=== PATIENT | female | born 1940 | race Caucasian/White ===

== ENCOUNTER 2016-06-29 12:34 | Observation (INO) | payer OTHER, MEDICARE ==
--- NOTE | 2016-06-29 13:30 | EDPHY ---
H & P Time Seen by Provider: 06/29/16 12:51 HPI/ROS: Chief complaint. Trouble speaking HPI. 75-year-old female had a 30 minutes episode of trouble speaking at noon today approximately 1 and 0.5 hours ago. It lasted 30 minutes and then resolved. She has no symptoms now. She tells me she knew what she wanted to say but could not get out. She had no other symptoms with it no leg weakness or arm weakness or paresthesias. No visual change. She had a slight headache which is now gone. No similar symptoms previously. Recent switch of blood pressure medication from amlodipine to Cozaar. Otherwise not sick. No chest discomfort shortness of breath or abdominal pain ROS Constitutional. no fever/chills, no weakness Eyes. no problems with vision ENT. no sore throat, no nasal drainage Cardiovascular. no chest pain Respiratory. no shortness of breath, no cough Abdominal. no abdominal pain, no nausea/vomiting, no diarrhea . no problems urinating MS. no calf pain/swelling, no neck/back pain, no joint pain Skin. no rash Lymph. no swollen glands Neuro. Difficulty speaking and slight headache Past Medical/Surgical History: Past medical history is significant for hypertension and concussion about 1 month ago Social History: , nonsmoker, no alcohol Smoking Status: Never smoked Physical Exam: General Appearance: Alert well-developed female no distress vital signs significant for blood pressure 217/109 Eyes: Pupils equal and round no pallor or injection. ENT, Mouth: Mucous membranes are moist. Respiratory: There are no retractions, lungs are clear to auscultation. Cardiovascular: Regular rate and rhythm. Gastrointestinal: Abdomen is soft and nontender, no masses, bowel sounds normal. Neurological: Awake and alert, sensory and motor exams grossly normal. Speech is normal. Cranial nerves are normal. There is no pronator drift. Finger-to- nose and [id number]-mr-[id number] are intact bilaterally Skin: Warm and dry, no rashes. Musculoskeletal: Neck is supple nontender. Extremities symmetrical, full range of motion. Psychiatric: Patient is oriented X 3, there is no agitation. Constitutional: Initial Vital Signs Temperature (C) 36.7 C 06/29/16 12:35 Heart Rate 81 06/29/16 12:35 Respiratory Rate 16 06/29/16 12:35 Blood Pressure 217/109 H 06/29/16 12:35 O2 Sat (%) 97 06/29/16 12:35 O2 Delivery Mode Room Air Allergies/Adverse Reactions: lidocaine Allergy (Uncoded 05/29/16 10:31) Home Medications: Medication Instructions Recorded Valerie 06/29/16 Medical Decision Making - Diagnostics EKG Interpretation: EKG interpreted by me shows normal sinus rhythm with normal interval axis QRS ST -T. There is no arrhythmia. The rate is 63 Imaging: Noncontrast head CT reviewed by me and discussed with Dr. Horton is consistent with mild atrophy but no intracranial bleeding Procedures: IV normal saline, monitor ED Course/Re-evaluation: Re-evaluation at 3:15 p.m.. Patient is stable without any neurologic findings. We discussed treatment plan including recommendation for admission for further evaluation. She expresses understanding and agrees I consulted and discussed the case with Dr. Sánchez Daily, hospitalist, who agrees to the admission Differential Diagnosis: I think that this represents TIA with speech difficulty. She has a normal neurologic exam now. I considered intracranial bleeding, a arrhythmia, infection. - Data Points Laboratory Results: Laboratory Results 06/29/16 12:48 06/29/16 12:48 06/29/16 12:48 WBC 5.62 10^3/uL (3.80-9.50) RBC 4.68 10^6/uL (4.18-5.33) Hgb 13.5 g/dL (12.6-16.3) Hct 39.6 % (38.0-47.0) MCV 84.6 fL (81.5-99.8) MCH 28.8 pg (27.9-34.1) MCHC 34.1 g/dL (32.4-36.7) RDW 12.7 % (11.5-15.2) Plt Count 250 10^3/uL (150-400) MPV 11.4 fL (8.7-11.7) Neut % (Auto) 46.5 % (39.3-74.2) Lymph % (Auto) 40.4 % (15.0-45.0) [place] % (Auto) 11.4 % (4.5-13.0) Eos % (Auto) 0.4 L % (0.6-7.6) Baso % (Auto) 1.1 % (0.3-1.7) Nucleat RBC Rel Count 0.0 % (0.0-0.2) Absolute Neuts (auto) 2.62 10^3/uL (1.70-6.50) Absolute Lymphs (auto) 2.27 10^3/uL (1.00-3.00) Absolute Monos (auto) 0.64 10^3/uL (0.30-0.80) Absolute Eos (auto) 0.02 L 10^3/uL (0.03-0.40) Absolute Basos (auto) 0.06 10^3/uL (0.02-0.10) Absolute Nucleated RBC 0.00 10^3/uL (0-0.01) Immature Gran % 0.2 % (0.0-1.1) Immature Gran # 0.01 10^3/uL (0.00-0.10) PT 13.9 SEC (12.0-15.0) INR 1.08 (0.83-1.16) Sodium 143 mEq/L (134-144) Potassium 4.6 mEq/L (3.5-5.2) Chloride 110 mEq/L (97-110) Carbon Dioxide 23 mEq/l (22-31) Anion Gap 10 mEq/L (8-16) BUN 17 mg/dL (7-23) Creatinine 0.7 mg/dL (0.6-1.0) Estimated GFR > 60 Glucose 108 H mg/dL (70-100) Calcium 9.5 mg/dL (8.5-10.4) Medications Given: Discontinued Medications Sodium Chloride (Ns) 1,000 mls @ 0 mls/hr IV ONCE ONE PRN Reason: Wide Open Stop: 06/29/16 13:43 Last Admin: 06/29/16 14:16 Dose: 1,000 mls Departure - Departure Disposition: [facility] Clinical Impression: Transient cerebral ischemia Qualifiers: Transient cerebral ischemia type: unspecified Qualifier Code: (G45.9) Transient cerebral ischemic attack, unspecified Condition: Fair
[2016-06-29] MEDS ORDERED: NS 1,000 ML IV ONE (13:42)
[2016-06-29 13:52] LABS: % IMMATURE GRANULYOCYTES 0.2 % (0.0-1.1); ABSOLUTE IMMATURE GRANULOCYTES 0.01 10^3/uL (0.00-0.10); ADD DIFF? NO; ADD MORPH? NO; ADD SCAN? NO; ATYPICAL LYMPHOCYTE FLAG 20 (0-99); FRAGMENT RBC FLAG 0 (0-99); HEMATOCRIT 39.6 % (38.0-47.0); HEMOGLOBIN 13.5 g/dL (12.6-16.3); LEFT SHIFT FLG 0 (0-99); LIPEMIA HEMOLYSIS FLAG 90 (0-99); MEAN CELL HEMOGLOBIN 28.8 pg (27.9-34.1); MEAN CELL HEMOGLOBIN CONCENTR. 34.1 g/dL (32.4-36.7); MEAN CELL VOLUME 84.6 fL (81.5-99.8); MEAN PLATELET VOLUME 11.4 fL (8.7-11.7); PLATELET CLUMPS FLAG 0 (0-99); PLATELET COUNT 250 10^3/uL (150-400); RED BLOOD CELL COUNT 4.68 10^6/uL (4.18-5.33); RED CELL DISTRIBUTION WIDTH 12.7 % (11.5-15.2)
[2016-06-29 14:00] LABS: ANION GAP 10 mEq/L (8-16); CALCIUM 9.5 mg/dL (8.5-10.4); CARBON DIOXIDE 23 mEq/l (22-31); CHLORIDE 110 mEq/L (97-110); CREATININE 0.7 mg/dL (0.6-1.0); GLOMERULAR FILTRATION RATE > 60; GLUCOSE 108 mg/dL (70-100); POTASSIUM 4.6 mEq/L (3.5-5.2); SODIUM 143 mEq/L (134-144)
[2016-06-29 14:03] LABS: INR 1.08 (0.83-1.16); PROTIME(PATIENT) 13.9 SEC (12.0-15.0)
--- NOTE | 2016-06-29 14:41 | CPEKG ---
Heart Rate: 63 RR Interval: 952 P-R Interval: 168 QRSD Interval: 78 QT Interval: 416 QTC Interval: 426 P [place]: 32 QRS [place]: 41 T Wave [place]: 50 EKG Severity - NORMAL ECG - EKG Impression: SINUS RHYTHM Electronically Signed By: Siva Barrera 29-Jun-2016 17:24:41
--- NOTE | 2016-06-29 15:16 | CT ---
CT Brain (Without Contrast) History: Episode of speech difficulty in a 75-year-old female. The episode has resolved. The patient experienced closed head injury one month ago.. Technique: Axial computed tomographic images of the brain are obtained from the base to the vertex w ithout contrast. Images are obtained at 5 mm thickness and reformatted at 1.5 mm. Sagittal and valladares l reformations are performed and the study is reviewed at multiple window/level settings. Dose reduct ion techniques were utilized. Comparison to the prior unenhanced CT of the head May 29, 2016. Findings: Ventricles, cisterns, and sulci are widened consistent with atrophy. There is no hydroceph alus, midline shift/herniation, or epidural/subdural hematoma. No intraparenchymal hemorrhage or mass effect is identified. Hypodensities are noted in the periventricular and subcortical white matter bi laterally. No acute cortical ischemia is identified. Cerebrovascular atherosclerosis is identified. B one windows demonstrate no displaced fractures. Paranasal sinuses and mastoid air cells are clear. There has been no significant change from the prior study. Impression: Elderly brain with atrophy and probable white matter small vessel disease. Nothing acute is identified. A preliminary report was called to Dr. Siva Barrera at 1515 hours in the Emergency Department.
[2016-06-29] MEDS ORDERED: ONDANSETRON DISINTEGRATING 4 MG TAB PO PRN (16:00)
[2016-06-29] MEDS ORDERED: ACETAMINOPHEN 325 MG TAB PO PRN (16:00)
[2016-06-29] MEDS ORDERED: ONDANSETRON 4 MG/2 ML VIAL IVP PRN (16:00)
[2016-06-29] MEDS: ASPIRIN 325 MG TAB PO SCH (16:08)
--- NOTE | 2016-06-29 16:23 | GHP ---
[f rep st] HISTORY AND PHYSICAL DATE OF ADMISSION: 06/29/2016 CHIEF COMPLAINT: Word-finding difficulties. HISTORY OF PRESENT ILLNESS: A 75-year-old female with a history of hypertension, hypothyroidism who woke in her normal state of health this morning, and while having discussions with her partner, ira oped sudden onset difficulty of speaking the words and finding words that she wanted to say. Patient quickly read up on the Internet; realized that it was potentially stroke symptoms; took an aspirin, full dose, at home; and presented to the emergency department. She describes in transit that her wor d-finding difficulty nearly resolved and so upon arrival to the emergency department, she had re-esta blished fluency. Patient denies any numbness or tingling, any weakness or other neurologic symptoms. Denies any dizziness, palpitations, headache, chest pain, shortness of breath, pleuritic chest pain , nausea, vomiting, abdominal discomfort, melena, hematochezia, dysuria, hematuria, rashes, or recent sick contacts. Denies any subjective fevers or chills. PAST MEDICAL HISTORY: 1. Hypertension. 2. Hypothyroidism. SOCIAL HISTORY: Negative for tobacco, 2 alcoholic beverages a week. No illicit drugs or marijuana. FAMILY HISTORY: Father in his 50s from a brain tumor. Mother has a history of cardiac disease, as well as stroke. ADVANCED DIRECTIVES: Patient is full cor, full tube. REVIEW OF SYSTEMS: A 10-point review of systems is negative with the exception of that reported in t he HPI. PHYSICAL EXAMINATION: VITAL SIGNS: Blood pressure is 217/109, heart rate 81, respiratory rate 16, 9 7% on room air, 36.7. GENERAL: This is a healthy-appearing middle-aged female in no acute distress. HEENT: Notable for moist mucous membranes. Eyes, negative for any icterus. CARDIAC: Patient is regular rate and rhythm. Moderate systolic murmur heard best at the left upper sternal border. PULM ONARY: Good respiratory effort. Clear to auscultation bilaterally. GASTROINTESTINAL: Positive bow el sounds. Soft, nontender in all 4 quadrants. MUSCULOSKELETAL: Negative for any lower extremity e júnior. SKIN: Negative for any rashes. NEUROLOGIC: Patient's strength is 5/5 in the bilateral upper and lower extremities. Sensation is intact throughout. Cranial nerves 2-12 are intact. The patien t is alert and oriented x3. Speech fluency is normal. DATA REVIEWED: CT noncontrast of the head, which I personally reviewed and interpreted, shows no acu te infarcts or bleeds. Radiology comments on elderly brain with atrophy. EKG, which I personally reviewed and interpreted, shows sinus rhythm, normal axis, normal intervals, inverted P-wave V1, inverted T-wave V1, otherwise no acute ST-T changes. LABORATORY DATA: White count 5.6, hematocrit 39.6, platelets of 250. INR 1.08. Creatinine 0.7, glu cose 108. ASSESSMENT/PLAN: This is a 75-year-old female, presenting with word-finding difficulty. 1. Suspected transient ischemic attack. Patient's initial brain imaging is negative. Neurologic ex am has restored itself to normal. Risks factors include uncontrolled hypertension; potential hyperli pidemia, although not established by the outpatient provider; and a family history of TIA in her moth er. The patient will be admitted to neurologic monitoring on telemetry. I have ordered an MRI with and without contrast, complete transthoracic echocardiogram, and carotid Dopplers. The patient riley david treated herself with a full-dose aspirin, will continue this daily until the end of her diagnostic workup. Consulted Neurology who will see the patient tomorrow morning after diagnostic information is gathered and the patient is monitored. 2. Hypertensive urgency. Patient is presenting with systolic blood pressures in the 200s. Will rec heck these prior to aggressively treating. Goal blood pressure for her would be below 180 systolic, as it sounds she has had recent difficulty controlling her blood pressures on home medications and casas s been running with systolics in the 160s to 180s. Do not want to drop her any lower than that. 3. Hypothyroidism. Will continue her home medications and check a TSH. 4. Prophylaxis: With Lovenox. 5. Diet: Regular after cleared by Speech Therapy. 6. Disposition: I expect in less than 2 midnights if the patient's diagnostic workup remains benign . Can discharge after neurologic consultation. I have discussed the case with the emergency room ph ysician. Patient will be triaged to the medical-surgical floor for neurologic observation. /[id number]/MODL
--- NOTE | 2016-06-29 16:37 | US ---
Bilateral Duplex Carotid Sonography Clinical Indications: 75-year-old female who had a TIA with an episode of speech difficulty, which h as since resolved. Evaluate for a hemodynamically significant stenosis. Technique: The cervical portions of the carotid and vertebral arteries were imaged and interrogated by color and pulsed Doppler. Spectral analysis was performed. Cine clips are stored on PACS. Comparison Study: CT angiography of the neck dated February 20, 2009. Findings: Right Carotid Artery: The common carotid artery, bifurcation, and the origin of the internal and ext ernal carotid artery are well imaged. Doppler velocity estimates and color Doppler spectra are lexi l, with no sonographic evidence of a flow-limiting stenosis. The peak systolic velocity in the [employer] al carotid artery is 99 cm/sec, with a peak diastolic velocity of 22 cm/sec. The ICA/CCA systolic and diastolic ratios are normal. Left Carotid Artery: The common carotid artery, bifurcation, and origin of the internal and external carotid artery are well imaged. Doppler velocity estimates and color Doppler spectra are normal, wi th no sonographic evidence of a flow-limiting stenosis. There is some mild atherosclerotic calcific p laque involving the left carotid bulb and the proximal internal carotid artery. The peak systolic dawna ocity in the internal carotid artery is 91 cm/sec, with a peak diastolic velocity of 16 cm/sec. The I CA to CCA systolic and diastolic ratios are normal. Vertebral Arteries: Antegrade flow is shown by pulsed Doppler of each vertebral artery. The peak sys tolic velocity in the right vertebral artery is 92 cm/sec, and on the left side there is a peak systo lic velocity of 72 cm/sec. Impression: 1. Atherosclerotic calcific plaque involving the left carotid bulb and the proximal internal carotid artery, without hemodynamically significant stenosis identified on the right or left side. 2. Patent, antegrade vertebral arteries. Measurement of carotid stenosis is based on velocity parameters that correlate the residual internal carotid diameter with [place] Symptomatic Carotid Endarterectomy Trial (NASCET) based stenosis levels.
[2016-06-29] MEDS ORDERED: GADOBUTROL 10 ML VIAL IVP ONE (16:55)
--- NOTE | 2016-06-29 18:13 | MR ---
Unenhanced and Enhanced MR Imaging of the Brain Clinical History: 75-year-old female who had an episode of speech difficulty earlier today (which has since resolved), and is being evaluated for a transient ischemic attack. Rule out CVA. Technique: Sagittal and axial T1 FLAIR, axial T2 PROPELLER and T2 FLAIR, axial SWI, DWI, and ADC map, as well as contrast-enhanced axial T1-weighted FS PGR with sagittal and coronal reformatted images. The patient received 6 mL of IV Gadavist without complication. Comparison Studies: Unenhanced CT imaging of the brain, dated June 29, 2016 and May 29, 2016. Findings: Again, there is mild prominence of the ventricles and basilar cisterns with cortical sulcal widening, consistent with age-related cerebral cortical atrophy. There is periventricular hyperinten se FLAIR signal at and above the level of the ventricles, and also minimally involving portions of th e sebastián, most consistent with chronic microvascular ischemic gliosis. The DWI sequences do not reveal any restricted diffusion to suggest an acute or subacute infarction. The SWI sequences do not reveal any blooming artifact to suggest occult hemorrhagic products or amyloid angiopathy. There is no acute or subacute intra- or extraaxial abnormal fluid collection. Following gadolinium, there is no unusua l parenchymal or leptomeningeal enhancement. There are appropriate vertebrobasilar, carotid artery, a nd dural venous sinus flow-voids. The craniocervical junction, sella turcica, pineal gland, and the o rbits are normal. The paranasal sinuses and mastoids are unremarkable. The cerebellopontine angles an d the internal auditory canals appear normal. Impression: Senescent features with cerebral cortical atrophy and extensive chronic microvascular isc hemic gliosis, but no evidence of an acute or subacute infarction.
[2016-06-29] MEDS: hydrALAZINE 20 MG/ML VIAL IVP PRN (19:16)
[2016-06-30] MEDS: hydrALAZINE 20 MG/ML VIAL IVP PRN (03:03)
[2016-06-30 05:13] LABS: ALANINE AMINOTRANSFERASE 25 IU/L (9-52); ALBUMIN 3.3 g/dL (3.5-5.0); ALKALINE PHOSPHATASE 66 IU/L (38-126); ANION GAP 9 mEq/L (8-16); ASPARTATE AMINOTRANSFERASE 19 IU/L (14-46); BILIRUBIN,TOTAL 0.6 mg/dL (0.1-1.4); CALCIUM 9.3 mg/dL (8.5-10.4); CARBON DIOXIDE 23 mEq/l (22-31); CHLORIDE 112 mEq/L (97-110); CHOLESTEROL 166 mg/dL (140-220); CHOLESTEROL/HDL RATIO 3.02 RATIO (1.00-4.44); CREATININE 0.7 mg/dL (0.6-1.0); GLOMERULAR FILTRATION RATE > 60; GLUCOSE 98 mg/dL (70-100); HIGH DENSITY LIPOPROTEIN 55 mg/dL (40-85); LDL/HDL RATIO 1.87 RATIO (1.00-3.22); LOW DENSITY LIPOPROTEIN 103 mg/dL (80-100); NON-HIGH DENSITY LIPOPROTEIN 111 mg/dL (90-129); POTASSIUM 4.1 mEq/L (3.5-5.2); SODIUM 144 mEq/L (134-144); TOTAL PROTEIN 6.2 g/dL (6.3-8.2); TRIGLYCERIDE 44 mg/dL (35-135); VERY LOW DENSITY LIPOPROTEINS 8 mg/dL (8-25)
[2016-06-30] MEDS: ASPIRIN 325 MG TAB PO SCH (08:56)
[2016-06-30] MEDS ORDERED: ENOXAPARIN 40 MG/0.4 ML SYR SC SCH (09:00)
[2016-06-30] MEDS ORDERED: [UNRECOGNIZED DRUG - OTHER] PO SCH (09:00)
[2016-06-30] MEDS ORDERED: Herbals/Supplements -Info Only PO SCH (09:00)
[2016-06-30] MEDS ORDERED: LOSARTAN POTASSIUM 50 MG TAB PO SCH (09:00)
--- NOTE | 2016-06-30 09:34 | ECHO ---
[id number] + + [address] : : [place] [address] : : [phone] + Adult Echocardiographic Report + ---------+ :Name: DEISI TALAVERA Date: 06/30/2016 08:16 AM : : Hospital Admission Number: [id number] Shelly samiranolan: 345: :: 1940 Gender: Female Height: 63 i n : :Age: 75 yrs Race: WH Weight: 132 lb : :Reason For Study: TIA : : BSA: 1.6 met ers2 : + ---------+ MMode/2D Measurements & Calculations IVSd: 1.0 cm LVIDd: 4.3 cm FS: 31.1 % MV Diam: 3.1 cm LVPWd: 1.2 cm LVIDs: 2.9 cm EDV(Teich): 81.3 ml ESV(Teich): 33.2 ml EF(Teich): 59.2 % Ao root diam: LVOT diam: 1.9 cmLVLd ap4: 7.5 cm SV(MOD-sp4): 2.9 cm LVOT area: EDV(MOD-sp4): 42.0 ml LA dimension: 3.0 cm2 60.0 ml 4.0 cm LVLs ap4: 6.5 cm ESV(MOD-sp4): 18.0 ml EF(MOD-sp4): 70.0 % Normal Measurement Values: + + :LVIDd (3.5-5.7cm) IVSd (0.6-1.1cm) LVPWd (0.6-1.1cm) Aortic Root (2.0-3.7cm)Left Atrium (1.5-4.0cm): :LV Vol(d) (76-115ml) LV Vol(s) (29-48ml) Ejec Fraction (50-65%)PV Curt (0.6- 1.2m/s) TV Curt (0.4-1.0m/s) : :MV E Curt (0.8-1.0m/s)MV A Curt (0.3-1.0m/s)LVOT Curt (0.7-1.2m/s) Asc Ao Curt ( 0.9-1.8m/s) : + + Doppler Measurements & Calculations MV E max curt: MV area (1 diam): Ao mean PG: LV V1 mean P.4 cm/sec 7.4 cm2 6.3 mmHg 1.3 mmHg MV A max curt: MV Flow area Ao V2 mean: LV V1 mean: 81.9 cm/sec 119.2 cm/sec 51.3 cm/sec MV E/A: 0.99 (1diam): 7.4 cm2 Ao V2 VTI: 40.3 cm LV V1 VTI: 21.3 cm MANUEL(I,D): 1.6 cm2 MR max curt: SV(LVOT): 63.3 ml 594.5 cm/sec MR max P.4 mmHg Left Ventricle The left ventricle is normal in size. Borderline concentric LVH noted. Left ventricular systolic function is normal. There is Doppler evidence for diastolic dysfunction. LVEF= 65%. No regional wall motion abnormalities noted. Right Ventricle The right ventricle is normal in size and function. Atria The left atrium is mildly dilated. Right atrial size is normal. The interatrial septum is intact with no evidence for an atrial septal defect. Mitral Valve No MV prolapse. There is no mitral valve stenosis. There is moderate mitral regurgitation. Tricuspid Valve Normal tricuspid valve. Mild TR noted. Aortic Valve Mild aortic valve sclerosis. There is no aortic stenosis. There is no aortic insufficiency. Pulmonic Valve The pulmonic valve is normal in structure and function. There is no pulmonic valvular regurgitation. Great Vessels The aortic root is normal size. Pericardium/Pleural There is no pericardial effusion. Conclusion A complete two-dimensional transthoracic echocardiogram was performed (2D, M-mode, Doppler and color flow Doppler). There is no obvious source of embolus identified. If one is highly clinically suspected, then transesophageal echocardiography should be considered. 1)Normal LV size and systolic function with a LVEF of 65% and normal wall motions. 2)Borderline concentric LVH noted with mild diastolic dysfunction. 3)Mild left atrial enlargment. 4)Mild aortic valve sclerosis with no or AI noted. 5)Moderate MR with mild MAC (mitral annual calcification) but no MV prolapse. 6)Mild TR noted. Unable to estimate PA pressures. 7)No ASD or PFO noted. 8)No LV thrombus noted. Final Reading Physician: Parish Zavala electronically signed on 06/30/2016 09:32 AM Ordering Physician: Chary Alvarez Performed By: Addie Vasquez RDCS
[2016-06-30 11:23] VITALS: PULSE 77; RESP 23; TEMP 98.6; O2SAT 96
[2016-06-30 11:24] VITALS: BP 186/79
[2016-06-30] MEDS ORDERED: LOSARTAN POTASSIUM 50 MG TAB PO ONE (13:30)
--- NOTE | 2016-06-30 13:48 | PDCONSULT ---
Pipeline Technician Note: HOSPITAL NEUROLOGY CONSULT REQUESTING: Chary Alvarez MD REASON: possible TIA HPI: This is a 75-year-old right-handed woman with a history of hypertension and hypothyroidism who presented to our Emergency Department yesterday due to a transient disturbance and language function. Patient states that over the past week or so she has been having difficulty controlling her high blood pressure. She states her home measures had been measuring systolics in the 160-180s. Yesterday, she was driving in the car with her partner when she noticed sudden onset expressive language difficulty lasting 10-20 minutes. Her partner states that her words were coming out and a telegraphic type fashion with nonsensical constant type sounds. There is no indication of any facial drooping, extremity weakness, sensory loss, visual disturbance. The patient states her stat symptoms resolved by the time she presented to the emergency room. She was concern for stroke, which is why she came to our facility. She has been asymptomatic since admission. No prior history of stroke or TIA. ROS: As per the HPI, otherwise a complete 12 point ROS was performed and is negative ALLERGIES AND MEDS: As recorded in the EMR - reviewed and reconciled PFSH: As per the intake H&P by Dr. Alvarez from 06/29/16 EXAM: GEN: WDWN laying in NAD HEENT: NCAT, sclera anicteric, conjunctiva not injected, MMM, oropharynx clear, no scalp tenderness NECK: supple, nontender, no meningismus CV: RRR s1 s2 wo m/r/c/g. Carotid pulses 2+ wo bruit NEURO: MS: awake, alert, oriented to all spheres. Speech nondysarthric. No language disturbance. Follows commands. Attends to both sides. Recent/remote memory grossly intact. Mood euthymic. Good fund of knowledge. CN: pupils 3mm round and reactive. Fundi with sharp discs. VFF. Primary gaze centered. Full ocular motility. Facial sensation preserved. Face symmetric. Palatoglossal movements intact. Shoulder shrug and head turn strong. MOTOR: normal bulk/tone. No adventitial movements. Full power throughout. SENSORY: intact to all modalities throughout. No extinction. COORD: no ataxia FN/HS. Andra preserved. Romberg neg. REFLEX: plantars down. No clonus. DTRS trace. GAIT: rises unassisted. Narrow base. Intact stride length/heel strike/toe lift /arm swing. Turns with 2 steps. Able to tandem without difficulty. DATA: Labs reviewed in EMR LDL 103 A1c pending Carotid doppler - mild left carotid bulb plaque, no hemodynamically significant stenosis of the BICAs MRI brain wo - no acute ischemia, moderate periventricular and subcortical chronic microvascular ischemic changes, couple punctate areas of chronic microvascular ischemia in the sebastián. IMPRESSION AND RECOMMENDATIONS: // TRANSIENT LANGUAGE DYSFUNCTION - TIA VS HYPERTENSIVE EMERGENCY Patient with transient expressive aphasia concerning for TIA, though, given her continued HTN in hospital and hx of difficult to control pressures, the possibility of HTN emergency is certainly high on the differential. Regardless of etiology, treatment is similar. - cont ASA daily - aggressive BP control with goal normotension - of the utmost importance as HTN is the number one risk factor for stroke - statin for goal LDL < 70 - normoglycemia with A1c < 6.5 - stroke education provided, including activating EMS for any abrupt onset neurologic deficit - followup with PCP for further surveillance and optimization of vascular risk factors, namely BP - OK for d/c from neuro standpoint
--- NOTE | 2016-06-30 16:01 | GDS ---
[f rep st] DISCHARGE SUMMARY DISCHARGE DIAGNOSES: Include: 1. Transient ischemic attack. 2. Hypertensive emergency. 3. Hyperthyroidism. HISTORY OF PRESENT ILLNESS: A 75-year-old female with a history of hypertension, who presented with word-finding difficulties. For details of patient's initial presentation, please see the history and physical dated 06/29/2016. CONSULTATIVE SERVICES: Include Neurology. PROCEDURES: On 06/29/2016, patient had a noncontrast CT of the head that showed no acute findings. On 06/29/2016, patient had an MRI of the brain that showed no acute infarct. On 06/29/2016, patient had a carotid Doppler that showed no flow-limiting stenoses. On 06/29/2016, patient had a transthora cic echocardiogram that showed no ASD or patent foramen ovale, no LV thrombus, normal LV size and fun ction. HOSPITAL COURSE BY ISSUE: 1. Transient ischemic attack: Patient had word-finding difficulties which came on rapidly and resol efren slowly prior to her presentation to the emergency department. Imaging workup has been negative f or stroke. High suspicion with the patient's risk factor of hypertension, but likely this was a chamorro sient ischemic attack. Plan is to maximize her cardiovascular risk factors, as well as blood pressur e control. She will follow in the outpatient setting with her Cardiology and primary care team. Of n ote, the patient's LDL is not at goal less than 70. Will discuss the initiation of a statin at discha e. Hemoglobin A1c is pending on the day of discharge. Dr. Ortega will need to follow. 2. Hypertensive urgency: Patient had markedly elevated blood pressures with systolics in the 200s t ransiently. Will up-titrate her outpatient regimen of losartan to full dose 100 [address] with [address]. Cason. She will be seen in the clinic next week for the addition of what we anticipate as necessary second agent for appropriate control. MEDICATIONS AT THE TIME OF DISPOSITION: Please reference medication reconciliation printed on 2016. FOLLOWUP APPOINTMENTS: 1. Include with Dr. Cason in the next 5-7 days for a blood pressure check and medication titratio n. 2. With Dr. Ortega for long-term management of her medical comorbidities and followup on her hemoglo bin A1c. PENDING STUDIES AT THE TIME OF DICTATION: Include a hemoglobin A1c. I spent greater than 30 minutes in the planning and coordination of this discharge. /[id number]/MODL
[2016-07-01 05:18] LABS: HEMOGLOBIN A1C 5.5 % (4.0-6.0)
[2016-07-01] MEDS ORDERED: LOSARTAN POTASSIUM 50 MG TAB PO SCH (09:00)
== END 2016-06-30 16:50 | disposition home or self-care (01) ==
LOC: F3N 17:20
PROVIDERS: ADMIT Internal Medicine; ATTEND Hospitalist
DX: G45.9 Transient cerebral ischemic attack, unspecified (principal); I16.1 Hypertensive emergency; E03.9 Hypothyroidism, unspecified
CPT/HCPCS: 70450; 70553; 92523; 93005; 93306; 93880; 99285; A9585; G0378; G9165; G9166; G9167; J0360; J1650

== ENCOUNTER → 2016-08-12 | Outpatient (CLI) | payer OTHER, MEDICARE | LOC: FIMAGING 12:42 | DX: Z12.31 Encounter for screening mammogram for malignant neoplasm of breast (principal) | CPT/HCPCS: G0202 ==

== ENCOUNTER → 2016-08-15 | Outpatient (CLI) | payer OTHER, MEDICARE | LOC: FIMAGING 14:54 | PROVIDERS: ATTEND Internal Medicine | DX: Z13.820 Encounter for screening for osteoporosis (principal); M81.0 Age-related osteoporosis without current pathological fracture; E03.9 Hypothyroidism, unspecified; Z78.0 Asymptomatic menopausal state; Z90.710 Acquired absence of both cervix and uterus; Z90.721 Acquired absence of ovaries, unilateral ==

== ENCOUNTER 2017-04-15 08:20 | Emergency (ER) | payer OTHER, MEDICARE ==
[2017-04-15 08:24] VITALS: RESP 16
--- NOTE | 2017-04-15 09:31 | EDPHY ---
H & P Time Seen by Provider: 04/15/17 09:06 HPI/ROS: CHIEF COMPLAINT: High blood pressure and trouble speaking HISTORY OF PRESENT ILLNESS: Patient was admitted in June 29 of this year for similar symptoms and had negative MRI brain, negative transthoracic echocardiogram, and Doppler showing no carotid stenosis. Today she had trouble sleeping and only slept for about 10:00 p.m. new midnight. Sugar blood pressure at 2 a.m. and noticed it was about 205-212 systolic and took 10 mg of Norvasc. At 7:20 a.m. the patient had 30 minutes of expressive aphasia. Per her she could not pronounce "hot water bottle "and could not get the words out to what she was going to carry out of the house. Her symptoms all resolved after 30 minutes. She presents with slight headache and mostly concerned about her high blood pressure. REVIEW OF SYSTEMS: Eye: no change in vision ENT: no sore throat Cardiac: no chest pain or syncope Pulmonary: no cough or SOB Abdomen: no vomiting, diarrhea, abdominal pain Musculoskeletal: no back pain or neck pain Skin: no rash Neuro: HPI Constitutional: no fever : no urinary symptoms A comprehensive 10 point review of systems is otherwise negative aside from elements mentioned in the history of present illness. PAST MEDICAL HISTORY: Hypertension Social history: No tobacco or alcohol General Appearance: Alert and conversant, cooperative. Eyes: No scleral icterus. ENT, Mouth: Normal mucous membranes. Respiratory: Normal respiratory effort, breath sounds equal, lungs are clear to auscultation. Cardiovascular: Regular rate and rhythm. Gastrointestinal: Abdomen is soft and non tender. Neurological: Alert and oriented x3. Normally conversant. Face symmetric, normal movement and sensation in all extremities. [id number] normal bilaterally, no pronator drift, toes downgoing bilaterally. Skin: Warm and dry, no rashes. Musculoskeletal: No peripheral edema and no joint swelling. Psychiatric: Not agitated. Emergency Department course/MDM: Patient presents with TIA symptoms in the setting of hypertension. Her blood pressure at this point is 163/110. EKG, labs, noncontrast head CT, Neurology consultation. 1004: Negative noncontrast head CT per [place], some microvascular disease. 1019: Discussed with Elpidio, he recommends DC with oral aspirin q day. Smoking Status: Never smoked Constitutional: Initial Vital Signs Temperature (C) 37.1 C 04/15/17 08:22 Heart Rate 92 04/15/17 08:22 Respiratory Rate 16 04/15/17 08:22 Blood Pressure 212/104 H 04/15/17 08:22 O2 Sat (%) 96 04/15/17 08:22 O2 Delivery Mode Room Air Allergies/Adverse Reactions: lidocaine Allergy (Uncoded 04/15/17 08:25) Home Medications: Medication Instructions Recorded Ibuprofen [Motrin (*)] 200 mg PO DAILY PRN 06/29/16 diphenhydrAMINE [Benadryl 25 MG 25 mg PO HS PRN 06/29/16 (*)] Losartan Potassium [Cozaar 50 mg 100 mg PO DAILY #60 tab 06/30/16 (*)] Medical Decision Making - Diagnostics EKG Interpretation: 12-lead EKG interpreted by me; official reading is in trace master. My interpretation is sinus rhythm with LVH rate 73. Imaging Results: Imaging Impressions Head CT 04/15/17 09:33 Impression: 1. Mild atrophy. 2. No acute hemorrhage, hydrocephalus, or mass effect. 3. Cerebrovascular atherosclerosis. 4. No definite acute infarct. 5. Moderate microvascular ischemic gliosis. 6. Consider MRI of the brain without and with contrast enhancement, if there is continued clinical concern. Findings and recommendations discussed with Emergency Department physician, JEAN-PAUL TORRES at 10:03 hour, 04/15/2017. Final report concurs with initial preliminary interpretation. Differential Diagnosis: Differential considered including but not limited to hypertensive emergency, ischemic stroke, seizure, intracranial bleed, TIA. - Data Points Laboratory Results: Laboratory Results 04/15/17 09:35 04/15/17 09:35 04/15/17 04/15/17 09:35 09:35 WBC 5.97 10^3/uL 10^3/uL (3.80-9.50) RBC 4.96 10^6/uL 10^6/uL (4.18-5.33) Hgb 14.7 g/dL g/dL (12.6-16.3) Hct 42.5 % % (38.0-47.0) MCV 85.7 fL fL (81.5-99.8) MCH 29.6 pg pg (27.9-34.1) MCHC 34.6 g/dL g/dL (32.4-36.7) RDW 12.9 % % (11.5-15.2) Plt Count 223 10^3/uL 10^3/uL (150-400) MPV 11.4 fL fL (8.7-11.7) Neut % (Auto) 47.9 % % (39.3-74.2) Lymph % (Auto) 36.5 % % (15.0-45.0) [place] % (Auto) 12.6 % % (4.5-13.0) Eos % (Auto) 1.0 % % (0.6-7.6) Baso % (Auto) 1.7 % % (0.3-1.7) Nucleat RBC Rel Count 0.0 % % (0.0-0.2) Absolute Neuts (auto) 2.86 10^3/uL 10^3/uL (1.70-6.50) Absolute Lymphs (auto) 2.18 10^3/uL 10^3/uL (1.00-3.00) Absolute Monos (auto) 0.75 10^3/uL 10^3/uL (0.30-0.80) Absolute Eos (auto) 0.06 10^3/uL 10^3/uL (0.03-0.40) Absolute Basos (auto) 0.10 10^3/uL 10^3/uL (0.02-0.10) Absolute Nucleated RBC 0.00 10^3/uL 10^3/uL (0-0.01) Immature Gran % 0.3 % % (0.0-1.1) Immature Gran # 0.02 10^3/uL 10^3/uL (0.00-0.10) Sodium 141 mEq/L mEq/L (134-144) Potassium 3.9 mEq/L mEq/L (3.5-5.2) Chloride 103 mEq/L mEq/L (97-110) Carbon Dioxide 26 mEq/l mEq/l (22-31) Anion Gap 12 mEq/L mEq/L (8-16) BUN 17 mg/dL mg/dL (7-23) Creatinine 0.8 mg/dL mg/dL (0.6-1.0) Estimated GFR > 60 Glucose 92 mg/dL mg/dL (70-100) Calcium 9.7 mg/dL mg/dL (8.5-10.4) Troponin I < 0.012 ng/mL ng/mL (0.000-0.034) Medications Given: Discontinued Medications Aspirin (Aspirin) 324 mg PO EDNOW ONE Stop: 04/15/17 10:23 Last Admin: 04/15/17 10:38 Dose: Not Given Departure - Departure Disposition: Home, Routine, Self-Care Clinical Impression: Aphasia, Hypertension Condition: Good Instructions: Hypertension (ED) Additional Instructions: Continue blood pressure medications. 1 oral aspirin per day is recommendation from Neurology. Please follow-up with Dr. Magallanes in the next 2 weeks. Referrals: Siva Ortega MD [Primary Care Provider] - As per Instructions Tony Magallanes MD [Medical Doctor] - As per Instructions
--- NOTE | 2017-04-15 09:37 | CPEKG ---
Heart Rate: 73 RR Interval: 822 P-R Interval: 176 QRSD Interval: 84 QT Interval: 440 QTC Interval: 485 P [place]: 59 QRS [place]: 37 T Wave [place]: 61 EKG Severity - ABNORMAL ECG - EKG Impression: SINUS RHYTHM EKG Impression: CONSIDER LEFT VENTRICULAR HYPERTROPHY Electronically Signed By: Juan Donaldson 15-Apr-2017 09:36:43
[2017-04-15 09:50] LABS: PLATELET COUNT 223 10^3/uL (150-400)
[2017-04-15] MEDS ORDERED: ASPIRIN 81 MG CHEWABLE TAB PO ONE (10:22)
[2017-04-15 10:40] VITALS: BP 176/80; PULSE 78; TEMP 98.6; O2SAT 98
== END 2017-04-15 10:40 | disposition home or self-care (01) ==
DX: I10 Essential (primary) hypertension (principal); R47.01 Aphasia

== ENCOUNTER → 2017-08-13 | Outpatient (CLI) | payer OTHER, MEDICARE | LOC: FIMAGING 13:06 | PROVIDERS: ATTEND Internal Medicine | DX: Z12.31 Encounter for screening mammogram for malignant neoplasm of breast (principal) ==

== ENCOUNTER → 2018-06-23 | Outpatient (CLI) | payer OTHER, MEDICARE | LOC: BHLMT 14:00 | PROVIDERS: ATTEND Internal Medicine Interventional Cardiology | DX: I34.0 Nonrheumatic mitral (valve) insufficiency (principal); I10 Essential (primary) hypertension | CPT/HCPCS: 93306-PO ==

== ENCOUNTER → 2018-08-14 | Outpatient (CLI) | payer OTHER, MEDICARE | LOC: FIMAGING 09:20 ==